=== PATIENT | male | born 1955 | race American Indian/Alaskan Native ===

== ENCOUNTER 2017-05-18 10:49 | Day surgery (SDC) | payer BC ==
[2017-05-18 11:19] VITALS: RESP 18
[2017-05-18 11:21] VITALS: BMI 32.4
[2017-05-18] MEDS ORDERED: Propofol 10 mg/ml Inj (20 ML) ONE (12:36)
[2017-05-18] MEDS ORDERED: Sodium Chloride 0.9% 1,000 ML IV SCH (13:15)
[2017-05-18 13:54] VITALS: O2SAT 98
[2017-05-18 14:10] VITALS: BP 129/66; PULSE 77; TEMP 98
== END 2017-05-18 14:34 | disposition home or self-care (01) ==
LOC: ENDO 10:49
PROVIDERS: ATTEND Internal Medicine
DX: K57.30 Diverticulosis of large intestine without perforation or abscess without bleeding (principal); K64.8 Other hemorrhoids; K64.4 Residual hemorrhoidal skin tags; K63.5 Polyp of colon; R19.4 Change in bowel habit
CPT/HCPCS: 45380; 88305; J2704; J7040 ×2